=== PATIENT | female | born 1950 | race Caucasian/White ===

== ENCOUNTER 2017-04-16 14:32 | Outpatient (CLI) | payer MEDICARE ==
--- NOTE | 2017-04-17 13:23 | RAD ---
CHEST TWO VIEWS: 04/16/17 HISTORY: Chest pain. COMPARISON: 03/15/17 FINDINGS: The cardiac silhouette and pulmonary vasculature are unremarkable. Lungs remain hyperinflated. Infil trate throughout the right upper lobe has become more diffuse than on the prior study. Focal consoli dation has developed at the right posterior lung base. A nasogastric tube and left subclavian centra l venous catheter have been removed. IMPRESSION: Interval evolution of the right upper lobe infiltrate. Newly developing right lower lobe consolidati on. POS: [facility]
== END 2017-04-16 14:33 | disposition home or self-care (01) ==
LOC: NAV RAD 14:32
PROVIDERS: ATTEND Family Medicine
DX: J18.1 Lobar pneumonia, unspecified organism (principal); A04.7 Enterocolitis due to Clostridium difficile; R91.8 Other nonspecific abnormal finding of lung field
CPT/HCPCS: 71020

== ENCOUNTER 2017-04-19 09:51 | Outpatient (CLI) | payer MEDICARE | END 2017-04-19 09:52 | disposition home or self-care (01) | LOC: NAV LABSP 09:51 | PROVIDERS: ATTEND Family Medicine | DX: A04.7 Enterocolitis due to Clostridium difficile (principal) | CPT/HCPCS: 87324; 87449 ==

== ENCOUNTER 2017-04-26 15:23 | Outpatient (CLI) | payer MEDICARE ==
--- NOTE | 2017-04-26 16:00 | RAD ---
2 VIEWS CHEST: Date: 04/26/17 PROVIDED CLINICAL HISTORY: Follow-up pneumonia. FINDINGS: Comparison is made with the study dated 04/16/17. The cardiac and mediastinal silhouette is unchanged in appearance. There has been interval improveme nt in the air space disease previously seen involving the right upper lobe. There is more dense cons olidation, though not increased in size, at the right lower lobe. Left lung remains clear. Scoliosis of the thoracic spine is again seen. No evidence for pleural fluid or pneumothorax. IMPRESSION: 1. Mid improvement in right upper lobe pneumonia. 2. Evolution of right lower lobe air space disease compatible with pneumonia. Radiographic follow-u p to document resolution is recommended. POS: [facility]
== END 2017-04-26 15:24 | disposition home or self-care (01) ==
LOC: NAV RAD 15:23
PROVIDERS: ATTEND Family Medicine
DX: J18.1 Lobar pneumonia, unspecified organism (principal)
CPT/HCPCS: 71020

== ENCOUNTER 2017-06-07 14:23 | Outpatient (CLI) | payer MEDICARE ==
--- NOTE | 2017-06-07 16:46 | RAD ---
EXAM: CHEST TWO VIEWS 06/07/17 COMPARISON: 04/26/17 HISTORY: Weakness. FINDINGS: There is persistent decreased volume of the right hemithorax. However, there is interval increased o pacification of the right and left hemithorax suggesting an infiltrate superimposed upon chronic anthony nge. Mild right sided pleural effusion. Compensatory hyperinflation of the left lung is noted. Stabl e cardiac silhouette. Stable bilateral apical pleural thickening. No pneumothorax. Stable curvature of the spine. IMPRESSION: Infiltrates superimposed upon chronic change. Continued surveillance is recommended to ensure resolu tion. POS: [facility]
== END 2017-06-07 14:24 | disposition home or self-care (01) ==
LOC: NAV RAD 14:23
PROVIDERS: ATTEND Family Medicine
DX: J18.1 Lobar pneumonia, unspecified organism (principal)
CPT/HCPCS: 71020

== ENCOUNTER 2017-06-10 12:59 | Emergency (ER) | payer MEDICARE ==
[2017-06-10 14:01] LABS: #Basophils 0.1 thou/uL (0.0-0.2); #Eosinphils 0.8 thou/uL (0.0-0.7); #Lymphocytes 1.8 thou/uL (1.20-3.40); #Monocytes 1.1 thou/uL (0.11-0.59); #Neutrophils 12.9 thou/uL (1.40-6.50); %Basophils 0.7 % (0.0-1.0); %Eosinophils 4.5 % (0.0-10.0); %Lymphocytes 10.7 % (21.0-51.0); %Monocytes 6.7 % (0.0-10.0); %Neutrophils 77.5 % (42.0-75.0); Hemoglobin 7.8 g/dL (12.0-16.0); Mean Corpuscular HGB CONC 30.3 g/dL (32.0-36.0); Mean Platelet Volume 5.5 fL (7.4-10.4); Platelet Count 682 thou/uL (130-400); RBC Distribution Width 14.5 % (11.5-14.5); White Blood Cell (WBC) Count 16.6 thou/uL (4.8-10.8)
[2017-06-10 14:02] LABS: Anisocytosis SLIGHT = 6-15 cells (100X) (0-5/hpf); Hypochromia MODERATE=16-30 cells (100X) (0-5/hpf); MDiff Complete? YES; Microcytosis SLIGHT = 6-15 cells (100X) (0-5/hpf); PLT Morphology Comment Appears Increased
[2017-06-10 14:10] LABS: ALT (SGPT) 21 U/L (8-55); AST (SGOT) 12 U/L (5-34); Albumin 3.5 g/dL (3.4-4.8); Alkaline Phosphatase 113 U/L (40-150); Anion Gap 17 mmol/L (10-20); BUN (Urea Nitrogen) 19 mg/dL (9.8-20.1); Bilirubin, Total 0.3 mg/dL (0.2-1.2); Calc. Creatinine Clearance 0 mL/min (70-130); Calcium 9.1 mg/dL (7.8-10.44); Carbon Dioxide 23 mmol/L (23-31); Chloride 100 mmol/L (98-107); Estimated GFR-MDRD 49; Globulin 3.1 g/dL (2.4-3.5); Glucose 117 mg/dL (80-115); Potassium 3.8 mmol/L (3.5-5.1); Protein, Total 6.6 g/dL (6.0-8.3); Sodium 136 mmol/L (136-145)
[2017-06-10 14:11] LABS: Troponin I 0.021 ng/mL (< 0.028)
--- NOTE | 2017-06-10 14:23 | RAD ---
CHEST PA AND LATERAL: HISTORY: A 67-year-old female with dyspnea and a history of an ongoing lung infection for the past three jenn hs with worsening shortness of breath and cough. COMPARISON: 06/07/2017 and 04/26/2017 FINDINGS: There are fairly extensive interstitial, reticulonodular, and fine alveolar nodular parenchymal gaffney ges throughout most of the right lung, although slightly less dense than on the 06/07/2017 study but still worse when compared to the 04/26/2017 study. In the left mid lung zone and lower lung zone, there are increased interstitial and reticulonodular parenchymal changes, which appear slightly more marked. Heart size is within normal limits and stable. There is biapical pleural thickening. IMPRESSION: Extensive bilateral interstitial, reticulonodular, and fine alveolar nodular parenchymal changes, po ssibly slightly improved in the right lung and probably slightly worse in the left mid lung zone whe n compared to the 06/07/2017 study. Both lungs are considerably worse when compared to an older 12/2016 study. Continue short-term followup. POS: [facility]
== END 2017-06-10 15:52 | disposition short-term general hospital (02) ==
LOC: NAV ERS 12:59
DX: J18.9 Pneumonia, unspecified organism (principal); K92.2 Gastrointestinal hemorrhage, unspecified; D64.9 Anemia, unspecified; I73.00 Raynaud's syndrome without gangrene; I48.91 Unspecified atrial fibrillation; E78.5 Hyperlipidemia, unspecified; I10 Essential (primary) hypertension; K58.9 Irritable bowel syndrome, unspecified; M81.0 Age-related osteoporosis without current pathological fracture; F41.9 Anxiety disorder, unspecified; F32.9 Major depressive disorder, single episode, unspecified
CPT/HCPCS: 71020; 80053; 82274; 82553; 83605; 83880; 84484; 85025; 87040; 93005; 94760; 96365; J1956

== ENCOUNTER 2017-08-05 13:17 | Emergency (ER) | payer MEDICARE, OTHER ==
[2017-08-05 14:22] LABS: ALT (SGPT) 17 U/L (8-55); AST (SGOT) 10 U/L (5-34); Albumin 2.9 g/dL (3.4-4.8); Alkaline Phosphatase 105 U/L (40-150); Anion Gap 15 mmol/L (10-20); BUN (Urea Nitrogen) 11 mg/dL (9.8-20.1); Bilirubin, Total 0.5 mg/dL (0.2-1.2); CK (CPK) 23 U/L (29-168); Calc. Creatinine Clearance 0 mL/min (70-130); Carbon Dioxide 22 mmol/L (23-31); Chloride 100 mmol/L (98-107); Estimated GFR-MDRD Greater than 90; Globulin 2.7 g/dL (2.4-3.5); Glucose 116 mg/dL (80-115); Lipase 4 U/L (8-78); Potassium 3.2 mmol/L (3.5-5.1); Protein, Total 5.6 g/dL (6.0-8.3); Sodium 134 mmol/L (136-145)
[2017-08-05 14:33] LABS: Bilirubin Negative (Negative); Blood, Urine Trace (Negative); Clarity Clear (Clear); Glucose, Urine (Dipstick) 100 mg/dL (Negative); Leukocyte Negative (Negative); Nitrite Negative (Negative); Protein, Urine (Dipstick) 30 mg/dL (Neg-Trace); Urobilinogen 0.2 mg/dL (0.2-1.0)
[2017-08-05 14:43] LABS: Anisocytosis MARKED = >30 cells (100X) (0-5/hpf); Band 1 % (5-11); Hemoglobin 10.4 g/dL (12.0-16.0); Lymphocytes 6 % (21-51); MDiff Complete? YES; Mean Corpuscular HGB CONC 32.8 g/dL (32.0-36.0); Mean Corpuscular Hemoglobin 27.9 pg (27.0-31.0); Mean Platelet Volume 5.5 fL (7.4-10.4); Monocytes 4 % (0-10); Neutrophil 89 % (42-75); Platelet Count 257 thou/uL (130-400); Polychromasia SLIGHT = 2-3 cells (100X) (0-2/hpf); RBC Distribution Width 20.3 % (11.5-14.5); Red Blood Cell (RBC) Count 3.74 mill/uL (4.20-5.40); Spherocytes SLIGHT = 1-5 cells (100X) (None Seen); Target Cells SLIGHT = 2-5 cells (100X) (0-1/hpf); Tear Drops SLIGHT = 2-5 cells (100X) (0-1/hpf); White Blood Cell (WBC) Count 21.8 thou/uL (4.8-10.8)
[2017-08-05 14:46] LABS: RBC/HPF 0-3 HPF (0-3); WBC/HPF 0-3 HPF (0-3)
--- NOTE | 2017-08-05 15:07 | RAD ---
PORTABLE CHEST 1 VIEW: DATE: 08/05/17. TIME: 2:38 p.m. HISTORY: Dehydration. FINDINGS: Comparison is made with the exam of 07/06/17. The previously noted gastrostomy tube is not seen. The heart size is borderline. There is pulmonar y vascular congestion. No lobar consolidation, pneumothoraces, or large effusions are seen. POS: [facility]
[2017-08-05 17:30] LABS: CKMB 2.9 ng/mL (0-6.6); Troponin I 0.019 ng/mL (< 0.028)
== END 2017-08-05 19:18 | disposition short-term general hospital (02) ==
LOC: NAV ERS 13:17
DX: E86.0 Dehydration (principal); I48.91 Unspecified atrial fibrillation; E78.5 Hyperlipidemia, unspecified; I10 Essential (primary) hypertension; M81.0 Age-related osteoporosis without current pathological fracture; F41.9 Anxiety disorder, unspecified; Z79.52 Long term (current) use of systemic steroids; Z79.01 Long term (current) use of anticoagulants; Z79.891 Long term (current) use of opiate analgesic; Z79.899 Other long term (current) drug therapy
CPT/HCPCS: 36415; 71010; 80053; 81003; 81015; 82550; 82553; 83690; 83880; 84484; 85025; 96360; 96361; A4353

== ENCOUNTER 2017-08-20 15:41 | Inpatient (IN) | payer MEDICARE ==
[2017-08-20 17:26] VITALS: BMI 19.1
[2017-08-20] MEDS: Acetaminophen/Codeine 30-300mg Tablet PO PRN (20:04)
[2017-08-20] MEDS: Famotidine 20 MG TAB PO SCH (20:05)
[2017-08-20] MEDS: Doxycycline 100 MG CAP PO SCH (20:05)
[2017-08-20] MEDS: ALPRAZolam 0.5 MG TAB PO SCH (20:05)
[2017-08-21] MEDS: Acetaminophen/Codeine 30-300mg Tablet PO PRN ×3 (02:52→16:12)
[2017-08-21 05:27] LABS: #Basophils 0.2 thou/uL (0.0-0.2); #Eosinphils 0.2 thou/uL (0.0-0.7); #Monocytes 1.9 thou/uL (0.11-0.59); #Neutrophils 8.3 thou/uL (1.40-6.50); %Basophils 1.5 % (0.0-1.0); %Eosinophils 1.9 % (0.0-10.0); %Monocytes 14.8 % (0.0-10.0); %Neutrophils 65.7 % (42.0-75.0); Hemoglobin 10.4 g/dL (12.0-16.0); Mean Corpuscular HGB CONC 31.3 g/dL (32.0-36.0); Mean Corpuscular Hemoglobin 29.3 pg (27.0-31.0); Mean Corpuscular Volume 93.6 fl (81.0-99.0); Mean Platelet Volume 5.3 fL (7.4-10.4); Platelet Count 557 thou/uL (130-400); RBC Distribution Width 21.3 % (11.5-14.5); Red Blood Cell (RBC) Count 3.56 mill/uL (4.20-5.40); White Blood Cell (WBC) Count 12.6 thou/uL (4.8-10.8)
[2017-08-21 05:28] LABS: Anisocytosis MODERATE=16-30 cells (100X) (0-5/hpf); Elliptocytes SLIGHT = 2-5 cells (100X) (0-1/hpf); MDiff Complete? YES; Ovalocytes SLIGHT = 2-5 cells (100X) (0-1/hpf); PLT Morphology Comment Appears Increased
[2017-08-21 05:37] LABS: Anion Gap 14 mmol/L (10-20); BUN (Urea Nitrogen) 13 mg/dL (9.8-20.1); Calc. Creatinine Clearance 60 mL/min (70-130); Carbon Dioxide 22 mmol/L (23-31); Chloride 102 mmol/L (98-107); Estimated GFR-MDRD Greater than 90; Glucose 108 mg/dL (80-115); Potassium 4.4 mmol/L (3.5-5.1); Sodium 134 mmol/L (136-145)
[2017-08-21] MEDS: Carvedilol 6.25 MG TAB PO SCH ×2 (09:53→17:58)
[2017-08-21] MEDS: Doxycycline 100 MG CAP PO SCH ×2 (09:53→21:56)
[2017-08-21] MEDS: Ferrous Sulfate 325 MG TAB PO SCH (09:53)
[2017-08-21] MEDS: Folic Acid 1 MG TAB PO SCH (09:54)
[2017-08-21] MEDS: Amlodipine 5 MG TAB PO SCH (09:54)
[2017-08-21] MEDS: Cyanocobalamin (Vitamin B-12) 1,000 MCG TAB PO SCH (09:54)
[2017-08-21] MEDS: Famotidine 20 MG TAB PO SCH ×2 (09:54→21:56)
[2017-08-21] MEDS: Digoxin 0.125 MG TAB PO SCH (09:54)
[2017-08-21] MEDS: ALPRAZolam 0.5 MG TAB PO SCH ×4 (09:54→21:56)
--- NOTE | 2017-08-21 13:41 | HP ---
DATE OF ADMISSION: 08/20/2017 DATE OF EXAMINATION AND DICTATION: 08/21/2017 CHIEF COMPLAINT: Deconditioning for therapy. BRIEF HISTORY: This is a 67-year-old female, who has a history of hypercapnic respiratory failure and atrial fibrillation, requiring PEG and trach placement and long stay in LTAC, was finally taken off her tracheostomy, but continued to be on her PEG tube and discharged home. She apparently has been eating at home. She apparently felt weak and dizzy, so came to [facility]'s ER. Zahra og was evaluated here and then transferred to [facility] in [place] for hypoxemia. She was admitted to the hospital for acute congestive heart failure and treated appropriately with IV diuretics and [facility]. She was seen by Pulmonary, Dr. La, and was felt to have signific ant deconditioning and she needs some therapy, but eventually will need to end up in a nursing facili , as she cannot take care of herself. She has been transferred here for therapy. Currently, she s tates that she is in chronic pain. She states that the pain medicines are helping. Her PEG tube was removed prior to discharge and she states that there is some soreness, but no other complaints. She is on doxycycline empirically according to the hospitalist for leukocytosis and possible questionabl e aspiration. She denies any coughing spells with eating or drinking. PAST MEDICAL HISTORY: 1. History of traumatic brain injury. 2. Irritable bowel syndrome. 3. Fibromyalgia. 4. Questionable history of rheumatoid arthritis. 5. Atrial fibrillation. 6. Dyslipidemia. 7. Chronic respiratory failure. 8. Chronic diastolic congestive heart failure. 9. Chronic kidney disease, stage 2. 10. Deconditioning. PAST SURGICAL HISTORY: 1. Bilateral tubal ligation. 2. Ankle surgery. 3. History of PEG tube placement. 4. Questionable history of tracheostomy. 5. History of radial keratotomy. FAMILY HISTORY: Noncontributory to current admission. PSYCHOSOCIAL HISTORY: No tobacco, alcohol, or IV drug abuse. CURRENT MEDICATIONS: She has been admitted here with the following medications: 1. Tylenol #3, 1-2 tablets q.6 hours p.r.n. pain. 2. Norvasc 2.5 mg daily. 3. Carvedilol 6.25 mg b.i.d. 4. Digoxin 0.125 mg daily. 5. Doxycycline 100 mg b.i.d. for 5 more days. 6. Pepcid 20 mg b.i.d. 7. Iron sulfate 325 daily. 8. Robaxin 500 mg p.o. q.i.d. ALLERGIES: PENICILLIN. REVIEW OF SYSTEMS: Cardiovascular System: Denies any chest pain, shortness of breath, palpitations, paroxysmal nocturnal dyspnea, orthopnea, pedal edema. Respiratory System: Denies any chronic cough , expectoration, or pleuritic-type chest pain. Gastrointestinal System: Denies any nausea, vomiting , diarrhea, constipation, hematemesis, melena, hematochezia. Genitourinary System: Denies any frequ ency, urgency, dysuria, or hematuria. Central Nervous System: No focal numbness, weakness, fainting spells. PHYSICAL EXAMINATION: GENERAL: A 67-year-old female resting comfortably in no acute distress. VITAL SIGNS: She is afebrile, heart rate is 82, respirations 20, oxygen saturation 97%, blood pressu re is 150/68. HEENT: Normocephalic, atraumatic. Pupils are equally reactive to light and accommodation. NECK: No JVD, thyromegaly, cervical adenopathy, throat exudates. No carotid bruits. CARDIOVASCULAR SYSTEM: S1 and S2 plus. RESPIRATORY SYSTEM: Normal vesicular breath sounds. ABDOMEN: Soft, nontender. PEG tube removal site is healthy. EXTREMITIES: Without cyanosis or clubbing. CENTRAL NERVOUS SYSTEM: Generalized weakness. LABORATORY VALUES: Done this morning show white count of 12.6, H and H is 10.4 and 33.4 with a plate let count of 557. Sodium 134, potassium 4.4, BUN and creatinine are 13 and 0.65. Her white count on 08/18/2017 was 12.7 and 08/14/2017 was 15, so it is improving. IMPRESSION: 1. Improving leukocytosis. 2. Possible bronchitis. 3. Deconditioning. 4. History of traumatic brain injury. 5. Chronic diastolic congestive heart failure. 6. Chronic kidney disease. 7. Atrial fibrillation, rate controlled. 8. History of chronic respiratory failure. 9. Possible osteoporosis. 10. Fibromyalgia. 11. History of rheumatoid arthritis. PLAN: 1. Continue current medications. 2. Nutritional support. 3. Deep venous thrombosis prophylaxis. 4. Decubitus precautions. 5. Stress ulcer prophylaxis. 6. Consult physical therapy and occupational therapy. 7. Monitor heart rate. 8. PEG tube site care, but it was removed. 9. Discussed with patient in detail and all questions answered. No family at the bedside.
[2017-08-21] MEDS: Methocarbamol 500 MG TAB PO PRN (14:44)
[2017-08-21] MEDS ORDERED: Artificial Tear Sol 15 ML BOT EA EYE PRN (17:28)
[2017-08-22] MEDS: Acetaminophen/Codeine 30-300mg Tablet PO PRN ×4 (02:30→21:09)
[2017-08-22] MEDS: Folic Acid 1 MG TAB PO SCH (08:57)
[2017-08-22] MEDS: Digoxin 0.125 MG TAB PO SCH (08:57)
[2017-08-22] MEDS: Famotidine 20 MG TAB PO SCH ×2 (08:57→21:09)
[2017-08-22] MEDS: Doxycycline 100 MG CAP PO SCH ×2 (08:57→21:09)
[2017-08-22] MEDS: Amlodipine 5 MG TAB PO SCH (08:57)
[2017-08-22] MEDS: Cyanocobalamin (Vitamin B-12) 1,000 MCG TAB PO SCH (08:58)
[2017-08-22] MEDS: ALPRAZolam 0.5 MG TAB PO SCH ×4 (08:58→21:11)
[2017-08-22] MEDS: Carvedilol 6.25 MG TAB PO SCH ×2 (08:58→17:47)
[2017-08-22] MEDS: Ferrous Sulfate 325 MG TAB PO SCH (08:59)
[2017-08-22] MEDS: Methocarbamol 500 MG TAB PO PRN ×2 (08:59→15:26)
--- NOTE | 2017-08-22 13:48 | PRG ---
DATE OF SERVICE: 08/22/2017 SUBJECTIVE: Ms. Tamez is complaining of pain. She states that she fell asleep in her wheelchair a nd she thinks it is not helping. She is apparently not doing much with therapy. She does not want t o be woken up at night to reposition her. I explained to her that the main reason she is here for th erapy and repositioning is very important to prevent skin breakdown. She denies any chest pain or sh ortness of breath. She denies any GI or symptoms. OBJECTIVE: VITAL SIGNS: She is afebrile, heart rate is 85, respirations 18, oxygen saturation 95%, blood pressu re is 132/70. CARDIOVASCULAR: S1, S2 plus. RESPIRATORY: Normal vesicular breath sounds. ABDOMEN: Soft, nontender, bowel sounds heard in all quadrants. The tube site removal, where it was removed, is healthy with dressing. CENTRAL NERVOUS SYSTEM: Generalized weakness. IMPRESSION: 1. History of traumatic brain injury. 2. Fibromyalgia. 3. Dyslipidemia. 4. Chronic diastolic congestive heart failure, well compensated. 5. Deconditioning. PLAN: 1. Continue current medications. 2. Encourage the patient to participate with therapy. 3. Nutritional support. 4. PEG tube site care where it was removed. 5. Routine laboratory values. 6. Deep venous thrombosis and stress ulcer prophylaxis. She is on PlexiPulses. 7. Decubitus precautions. 8. I discussed with the patient in detail.
[2017-08-23] MEDS: Acetaminophen/Codeine 30-300mg Tablet PO PRN ×3 (03:59→18:19)
[2017-08-23] MEDS: Methocarbamol 500 MG TAB PO PRN (04:00)
[2017-08-23] MEDS: Doxycycline 100 MG CAP PO SCH ×2 (08:34→21:32)
[2017-08-23] MEDS: Cyanocobalamin (Vitamin B-12) 1,000 MCG TAB PO SCH (08:34)
[2017-08-23] MEDS: Amlodipine 5 MG TAB PO SCH (08:34)
[2017-08-23] MEDS: Folic Acid 1 MG TAB PO SCH (08:35)
[2017-08-23] MEDS: ALPRAZolam 0.5 MG TAB PO SCH ×4 (08:35→21:32)
[2017-08-23] MEDS: Carvedilol 6.25 MG TAB PO SCH ×2 (08:35→17:04)
[2017-08-23] MEDS: Ferrous Sulfate 325 MG TAB PO SCH (08:36)
[2017-08-23] MEDS: Famotidine 20 MG TAB PO SCH ×2 (08:36→21:32)
[2017-08-23] MEDS: Digoxin 0.125 MG TAB PO SCH (08:36)
--- NOTE | 2017-08-23 09:38 | PRG ---
DATE OF SERVICE: 08/23/2017 SUBJECTIVE: Ms. Tamez is up in her bed eating her breakfast. She says she has a bad tooth and it is sensitive. She would like some Orajel. She denies any other concerns. Discussed with nursing an d she apparently is not doing a whole lot with therapy. Again reinforced the need for her to partici alicea with therapy so that she can get stronger and be discharged. OBJECTIVE: VITAL SIGNS: She is afebrile, heart rate 87, respirations 18, oxygen saturation 93%, blood pressure 147/72. CARDIOVASCULAR: S1, S2 plus. RESPIRATORY: Normal vesicular breath sounds. ABDOMEN: Soft, nontender, bowel sounds heard in all quadrants. PEG tube removal site is healthy and with dressing. EXTREMITIES: Without cyanosis or clubbing. IMPRESSION: 1. Chronic diastolic congestive heart failure. 2. Significant deconditioning. 3. Fibromyalgia. 4. Questionable rheumatoid arthritis. 5. History of traumatic brain injury. 6. Chronic diastolic congestive heart failure, well compensated. 7. Poor dentition. PLAN: 1. Orajel t.i.d. p.r.n. 2. Encourage the patient to participate with physical therapy. 3. Continue current medications. 4. PEG tube removal site care. 5. DVT and stress ulcer prophylaxis. 6. Decubitus precautions. 7. Nutritional support. 8. No family at bedside. 9. Discussed with patient in detail. All questions answered.
[2017-08-23] MEDS ORDERED: Benzocaine (Dental) 20% Gel 30GM Jar TOP PRN (17:24)
[2017-08-23] MEDS ORDERED: Hydrocortisone Acetate 25 MG Suppository PR SCH (21:30)
[2017-08-24] MEDS: Acetaminophen/Codeine 30-300mg Tablet PO PRN ×3 (06:42→21:09)
[2017-08-24] MEDS: Ferrous Sulfate 325 MG TAB PO SCH (09:29)
[2017-08-24] MEDS: Methocarbamol 500 MG TAB PO PRN (09:29)
[2017-08-24] MEDS: ALPRAZolam 0.5 MG TAB PO SCH ×4 (09:29→21:09)
[2017-08-24] MEDS: Famotidine 20 MG TAB PO SCH ×2 (09:30→21:09)
[2017-08-24] MEDS: Doxycycline 100 MG CAP PO SCH ×2 (09:30→21:08)
[2017-08-24] MEDS: Amlodipine 5 MG TAB PO SCH (09:30)
[2017-08-24] MEDS: Digoxin 0.125 MG TAB PO SCH (09:30)
[2017-08-24] MEDS: Folic Acid 1 MG TAB PO SCH (09:30)
[2017-08-24] MEDS: Hydrocortisone Acetate 25 MG Suppository PR SCH ×4 (09:31→21:08)
[2017-08-24] MEDS: Hydrocortisone 1% Cream 30 GM TUBE TOP SCH ×3 (09:31→21:12)
[2017-08-24] MEDS: Cyanocobalamin (Vitamin B-12) 1,000 MCG TAB PO SCH (09:31)
[2017-08-24] MEDS: Carvedilol 6.25 MG TAB PO SCH ×2 (09:32→17:51)
--- NOTE | 2017-08-24 10:34 | PRG ---
DATE OF SERVICE: 08/24/2017 DATE OF ADMISSION: 08/20/2017 HISTORY OF PRESENT ILLNESS: Ms. Chaparro is a very pleasant 67-year-old white female admitted to the hospital for deconditioning and COPD exacerbation along with traumatic brain injury, fibromyalgia, an d dental pain. The patient has actually been doing pretty well today. She states her tooth feels a bit better. We are encouraging her to continue with physical therapy. We are also encouraging her to down the bed a s much as possible. PHYSICAL EXAMINATION: VITAL SIGNS: Today reveal blood pressure 129/67, pulse 83-87, respirations 20, O2 sat 95%, temperatu re 98.1. GENERAL: This is a well-developed, well-nourished, slightly obese white female in no apparent distre ss at this time. HEENT: Reveals normocephalic, nontraumatic cranium. Pupils are equally round. Nose and throat are slightly dry, but clear. NECK: Supple, without masses, nodes or bruits. CHEST: Clear to auscultation. No rales, rhonchi or wheezes are heard. No cough is noted. HEART: Reveals a regular rate and rhythm without murmurs, gallops or rubs. ABDOMEN: Slightly obese, soft, nontender, without organomegaly. Normal bowel sounds are noted. No rebound or guarding is noted. GENITOURINARY: PEG tube site is still clean. Exam is deferred. EXTREMITIES: Reveal no clubbing, cyanosis or edema. ASSESSMENT: 1. Chronic diastolic congestive heart failure. 2. Generalized weakness with significant deconditioning. 3. Fibromyalgia. 4. History of rheumatoid arthritis. 5. History of traumatic brain injury. 6. Generalized weakness. 7. Poor dentition. PLAN: 1. Continue to follow for signs and symptoms of congestive heart failure. 2. Continue Orajel since that is helping quite a bit. 3. Encouraged patient to get out of bed as much as possible and stay in wheelchair till this weekend . 4. Continue to keep PEG site area clean. 5. Stress ulcer prophylaxis. 6. DVT prophylaxis. 7. Decubitus precautions. 8. Continue with nutritional support. 9. Answer all the patient's questions in detail.
[2017-08-24] MEDS: diphenhydrAMINE 25 MG CAP PO PRN (21:08)
--- NOTE | 2017-08-25 07:45 | PRG ---
DATE OF SERVICE: 08/25/2017 DATE OF ADMISSION: 08/20/2017 HISTORY OF PRESENT ILLNESS: Ms. Tamez is a very pleasant 67-year-old white female. She has a hist ory of COPD, acute exacerbation with traumatic brain injury, fibromyalgia, general pain and generaliz ed deconditioning. The patient states she does not sleep well since she has had her TBI, but is still doing okay. We ar e encouraging her to continue working with physical therapy and occupational therapy. OBJECTIVE: VITAL SIGNS: Today reveal blood pressure last night was 146/60, it is still pending this morning. P ulse 83, respirations 18, O2 sat 95%-97%, T-max is 96.1. GENERAL: This is a well-developed, well-nourished, white female in no apparent distress at this time . HEENT: Reveals normocephalic, nontraumatic cranium. The pupils are equally round and reactive. Nos e and throat are clear, but dry. NECK: Supple, without masses, nodes or bruits. LUNGS: Chest is clear to auscultation. No rales, no rhonchi, no wheezes are heard. HEART: Reveals a regular rate and rhythm without murmurs, gallops or rubs. ABDOMEN: Soft and nontender without organomegaly. Normal bowel sounds are noted. No rebound or gua rding is evident. PEG tube site is still clean. GENITOURINARY: Deferred. EXTREMITIES: Reveal no clubbing, cyanosis or edema. IMPRESSION: 1. Chronic diastolic congestive heart failure. 2. Fibromyalgia. 3. History of rheumatoid arthritis. 4. History of traumatic brain injury. 5. Generalized weakness with significant deconditioning. 6. Poor dentition. PLAN: 1. Continue to follow the patient closely for signs and symptoms of congestive heart failure. 2. Continue Orajel. 3. Encourage the patient to be out of bed as much as possible. 4. Continue to keep the PEG site clean. 5. Stress ulcer prophylaxis. 6. DVT prophylaxis. 7. Decubitus precautions. 8. Continue physical therapy and occupational therapy. 9. Nutritional support.
[2017-08-25] MEDS: Doxycycline 100 MG CAP PO SCH ×2 (09:42→22:01)
[2017-08-25] MEDS: Cyanocobalamin (Vitamin B-12) 1,000 MCG TAB PO SCH (09:43)
[2017-08-25] MEDS: Amlodipine 5 MG TAB PO SCH (09:43)
[2017-08-25] MEDS: Folic Acid 1 MG TAB PO SCH (09:43)
[2017-08-25] MEDS: Digoxin 0.125 MG TAB PO SCH (09:43)
[2017-08-25] MEDS: Ferrous Sulfate 325 MG TAB PO SCH (09:43)
[2017-08-25] MEDS: ALPRAZolam 0.5 MG TAB PO SCH ×4 (09:43→22:01)
[2017-08-25] MEDS: Famotidine 20 MG TAB PO SCH ×2 (09:43→22:01)
[2017-08-25] MEDS: Hydrocortisone Acetate 25 MG Suppository PR SCH ×4 (09:44→22:01)
[2017-08-25] MEDS: Hydrocortisone 1% Cream 30 GM TUBE TOP SCH ×3 (09:44→22:01)
[2017-08-25] MEDS: Carvedilol 6.25 MG TAB PO SCH ×2 (09:44→17:40)
[2017-08-25] MEDS: Acetaminophen/Codeine 30-300mg Tablet PO PRN (15:07)
[2017-08-25] MEDS: Methocarbamol 500 MG TAB PO PRN (15:08)
[2017-08-25] MEDS: diphenhydrAMINE 25 MG CAP PO PRN (22:01)
[2017-08-26] MEDS: Hydrocortisone Acetate 25 MG Suppository PR SCH ×4 (09:07→21:29)
[2017-08-26] MEDS: ALPRAZolam 0.5 MG TAB PO SCH ×4 (09:07→21:30)
[2017-08-26] MEDS: Doxycycline 100 MG CAP PO SCH ×2 (09:07→21:30)
[2017-08-26] MEDS: Digoxin 0.125 MG TAB PO SCH (09:08)
[2017-08-26] MEDS: Carvedilol 6.25 MG TAB PO SCH ×2 (09:08→16:32)
[2017-08-26] MEDS: Folic Acid 1 MG TAB PO SCH (09:08)
[2017-08-26] MEDS: Ferrous Sulfate 325 MG TAB PO SCH (09:08)
[2017-08-26] MEDS: Amlodipine 5 MG TAB PO SCH (09:09)
[2017-08-26] MEDS: Cyanocobalamin (Vitamin B-12) 1,000 MCG TAB PO SCH (09:09)
[2017-08-26] MEDS: Famotidine 20 MG TAB PO SCH ×2 (09:10→21:30)
[2017-08-26] MEDS: Hydrocortisone 1% Cream 30 GM TUBE TOP SCH ×3 (09:10→21:30)
[2017-08-26] MEDS: Acetaminophen/Codeine 30-300mg Tablet PO PRN ×2 (09:21→16:36)
[2017-08-26] MEDS: Methocarbamol 500 MG TAB PO PRN (12:21)
--- NOTE | 2017-08-26 13:30 | PRG ---
DATE OF SERVICE: 08/26/2017 SUBJECTIVE: Ms. Tamez is doing well. Denies any complaints, resting comfortably, tolerating her t herapy. She states that she was able to stand yesterday. OBJECTIVE: VITAL SIGNS: She is afebrile, heart rate is 77, respirations 18, blood pressure 174/81. CARDIOVASCULAR SYSTEM: S1, S2 plus. RESPIRATORY SYSTEM: Normal vesicular breath sounds. ABDOMEN: Soft, nontender, bowel sounds heard in all quadrants. EXTREMITIES: Without cyanosis or clubbing. IMPRESSION: 1. Improving deconditioning. 2. Fibromyalgia. 3. Chronic diastolic congestive heart failure. 4. History of traumatic brain injury. PLAN: 1. Continue current medications. 2. Nutritional support. 3. Monitor blood pressure and adjust medications. 4. DVT and stress ulcer prophylaxis. 5. Physical therapy. 6. Routine laboratory values. 7. No family at the bedside.
[2017-08-26] MEDS: Acetaminophen 500 MG TAB PO PRN (15:16)
[2017-08-26] MEDS: diphenhydrAMINE 25 MG CAP PO PRN (21:30)
[2017-08-27] MEDS: Hydrocortisone Acetate 25 MG Suppository PR SCH ×4 (08:46→21:19)
[2017-08-27] MEDS: Ferrous Sulfate 325 MG TAB PO SCH (08:46)
[2017-08-27] MEDS: Cyanocobalamin (Vitamin B-12) 1,000 MCG TAB PO SCH (08:46)
[2017-08-27] MEDS: Amlodipine 5 MG TAB PO SCH (08:46)
[2017-08-27] MEDS: Acetaminophen/Codeine 30-300mg Tablet PO PRN ×2 (08:47→13:32)
[2017-08-27] MEDS: Famotidine 20 MG TAB PO SCH ×2 (08:48→21:19)
[2017-08-27] MEDS: ALPRAZolam 0.5 MG TAB PO SCH ×4 (08:48→21:19)
[2017-08-27] MEDS: Carvedilol 6.25 MG TAB PO SCH ×2 (08:48→17:30)
[2017-08-27] MEDS: Folic Acid 1 MG TAB PO SCH (08:48)
[2017-08-27] MEDS: Hydrocortisone 1% Cream 30 GM TUBE TOP SCH ×3 (08:48→21:20)
[2017-08-27] MEDS: Digoxin 0.125 MG TAB PO SCH (08:48)
--- NOTE | 2017-08-27 13:33 | PRG ---
DATE OF SERVICE: 08/27/2017 SUBJECTIVE: Ms. Tamez is doing well. Denies any complaints. She states that she is tolerating th erapy. Denies any pain. Discussed with nursing and no concerns. OBJECTIVE: VITAL SIGNS: She is afebrile, heart rate 83, respirations 18, oxygen saturation 97%, and blood press ure 154/70. CARDIOVASCULAR SYSTEM: S1, S2 plus. RESPIRATORY SYSTEM: Normal vesicular breath sounds. ABDOMEN: Soft, nontender, bowel sounds heard in all quadrants. EXTREMITIES: Without cyanosis or clubbing. Peripheral pulses are palpable. CENTRAL NERVOUS SYSTEM: Grossly nonfocal. IMPRESSION: 1. Fibromyalgia. 2. Improving deconditioning. 3. Hypertension. 4. Resolved bronchitis. 5. Chronic diastolic congestive heart failure. 6. History of traumatic brain injury. PLAN: 1. Continue current medications. 2. Nutritional support. 3. DVT and stress ulcer prophylaxis. 4. Decubitus precautions. 5. Routine laboratory values. 6. No family at the bedside. 7. Discussed with patient in detail and all questions answered.
[2017-08-27] MEDS: diphenhydrAMINE 25 MG CAP PO PRN (21:19)
[2017-08-28 05:19] LABS: #Basophils 0.2 thou/uL (0.0-0.2); #Eosinphils 0.4 thou/uL (0.0-0.7); #Lymphocytes 2.6 thou/uL (1.20-3.40); #Monocytes 1.4 thou/uL (0.11-0.59); #Neutrophils 9.5 thou/uL (1.40-6.50); %Basophils 1.3 % (0.0-1.0); %Eosinophils 2.7 % (0.0-10.0); %Lymphocytes 18.5 % (21.0-51.0); %Neutrophils 67.6 % (42.0-75.0); Anisocytosis MODERATE=16-30 cells (100X) (0-5/hpf); Hemoglobin 10.9 g/dL (12.0-16.0); MDiff Complete? YES; Mean Corpuscular HGB CONC 34.2 g/dL (32.0-36.0); Mean Corpuscular Volume 90.7 fl (81.0-99.0); Mean Platelet Volume 5.4 fL (7.4-10.4); Microcytosis SLIGHT = 6-15 cells (100X) (0-5/hpf); Ovalocytes SLIGHT = 2-5 cells (100X) (0-1/hpf); PLT Morphology Comment Appears Adequate; Platelet Count 465 thou/uL (130-400); RBC Distribution Width 19.1 % (11.5-14.5); Red Blood Cell (RBC) Count 3.52 mill/uL (4.20-5.40); White Blood Cell (WBC) Count 14.1 thou/uL (4.8-10.8)
[2017-08-28 05:29] LABS: Anion Gap 16 mmol/L (10-20); BUN (Urea Nitrogen) 18 mg/dL (9.8-20.1); Calc. Creatinine Clearance 62 mL/min (70-130); Calcium 9.4 mg/dL (7.8-10.44); Carbon Dioxide 23 mmol/L (23-31); Chloride 102 mmol/L (98-107); Estimated GFR-MDRD Greater than 90; Glucose 106 mg/dL (80-115); Potassium 4.4 mmol/L (3.5-5.1); Sodium 137 mmol/L (136-145)
[2017-08-28] MEDS: Hydrocortisone 1% Cream 30 GM TUBE TOP SCH ×3 (09:25→21:48)
[2017-08-28] MEDS: Hydrocortisone Acetate 25 MG Suppository PR SCH ×5 (09:25→21:49)
[2017-08-28] MEDS: ALPRAZolam 0.5 MG TAB PO SCH ×4 (09:26→21:39)
[2017-08-28] MEDS: Carvedilol 6.25 MG TAB PO SCH ×2 (09:26→17:41)
[2017-08-28] MEDS: Folic Acid 1 MG TAB PO SCH (09:26)
[2017-08-28] MEDS: Amlodipine 5 MG TAB PO SCH (09:26)
[2017-08-28] MEDS: Acetaminophen/Codeine 30-300mg Tablet PO PRN ×2 (09:27→15:47)
[2017-08-28] MEDS: Ferrous Sulfate 325 MG TAB PO SCH (09:27)
[2017-08-28] MEDS: Cyanocobalamin (Vitamin B-12) 1,000 MCG TAB PO SCH (09:27)
[2017-08-28] MEDS: Digoxin 0.125 MG TAB PO SCH (09:27)
[2017-08-28] MEDS: Methocarbamol 500 MG TAB PO PRN ×2 (09:27→15:46)
[2017-08-28] MEDS: Famotidine 20 MG TAB PO SCH ×2 (09:27→21:40)
--- NOTE | 2017-08-28 12:13 | PRG ---
DATE OF SERVICE: 08/28/2017 SUBJECTIVE: Ms. Tamez is doing well. Denies any complaints, resting comfortably, tolerating her t herapy. Denies any concerns or questions. OBJECTIVE: VITAL SIGNS: She is afebrile, heart rate is 78, respirations 14, oxygen saturation 93%, blood pressu re is 141/71. CARDIOVASCULAR SYSTEM: S1, S2 plus. RESPIRATORY SYSTEM: Normal vesicular breath sounds. ABDOMEN: Soft, nontender, bowel sounds heard in all quadrants. EXTREMITIES: Without cyanosis or clubbing. CENTRAL NERVOUS SYSTEM: Generalized deconditioning. LABORATORY VALUES: White count is 14.1, H&H is 10.9 and 31.9, white count was 12.6 last time, sodium 137, potassium 4.4, BUN and creatinine is 18 and 0.63. IMPRESSION: 1. Leukocytosis. 2. Fibromyalgia. 3. Deconditioning. 4. Chronic diastolic congestive heart failure. 5. History of traumatic brain injury. 6. Possible bronchitis. PLAN: 1. Check urine culture and blood cultures. 2. Continue current medications. 3. Nutritional support. 4. Physical therapy. 5. DVT and stress ulcer prophylaxis. 6. Monitor blood pressures. 7. Routine laboratory values. 8. Hold off on any empiric antibiotics since there is really no focus of infection. Discussed with patient in detail.
[2017-08-29] MEDS: Hydrocortisone 1% Cream 30 GM TUBE TOP SCH ×3 (09:23→20:26)
[2017-08-29] MEDS: Amlodipine 5 MG TAB PO SCH (09:24)
[2017-08-29] MEDS: Folic Acid 1 MG TAB PO SCH (09:25)
[2017-08-29] MEDS: Ferrous Sulfate 325 MG TAB PO SCH (09:25)
[2017-08-29] MEDS: Digoxin 0.125 MG TAB PO SCH (09:26)
[2017-08-29] MEDS: Cyanocobalamin (Vitamin B-12) 1,000 MCG TAB PO SCH (09:27)
[2017-08-29] MEDS: Hydrocortisone Acetate 25 MG Suppository PR SCH ×4 (09:27→20:27)
[2017-08-29] MEDS: Famotidine 20 MG TAB PO SCH ×2 (09:27→20:26)
[2017-08-29] MEDS: ALPRAZolam 0.5 MG TAB PO SCH ×4 (09:27→20:25)
[2017-08-29] MEDS: Carvedilol 6.25 MG TAB PO SCH ×2 (09:27→17:18)
--- NOTE | 2017-08-29 12:53 | PRG ---
DATE OF SERVICE: 08/29/2017 SUBJECTIVE: Ms. Tamez is doing well except she continues to have a dry cough. Denies any fever or chills. Denies any chest pain or shortness of breath. OBJECTIVE: VITAL SIGNS: She is afebrile, heart rate 88, respirations 18, oxygen saturation 96%, blood pressure is 124/68. CARDIOVASCULAR: S1, S2 plus. RESPIRATORY: Normal vesicular breath sounds. ABDOMEN: Soft, nontender, bowel sounds heard in all quadrants. EXTREMITIES: Without cyanosis or clubbing. IMPRESSION: 1. Improving deconditioning. 2. Worsening leukocytosis. 3. Persistent cough. 4. Fibromyalgia. 5. History of traumatic brain injury. 6. Chronic diastolic congestive heart failure. PLAN: 1. Check chest x-ray. 2. Await urine cultures and blood cultures. 3. Recheck laboratory values. 4. Hold off on empiric antibiotics. 5. DVT and stress ulcer prophylaxis. 6. Decubitus precautions. 7. Routine laboratory values. 8. Physical therapy.
[2017-08-29] MEDS: Methocarbamol 500 MG TAB PO PRN (14:06)
[2017-08-29] MEDS: Acetaminophen/Codeine 30-300mg Tablet PO PRN ×2 (14:06→20:27)
--- NOTE | 2017-08-29 16:17 | RAD ---
PORTABLE CHEST 1 VIEW: Date: 08/29/17 Time: 1533 hours HISTORY: Cough. FINDINGS/IMPRESSION: The heart size is normal. The aorta is tortuous. The lungs are well expanded without lobar consolidat ion, pneumothoraces, or pleural effusions. There is mild prominence of the interstitial markings. POS: [facility]
[2017-08-30] MEDS: Acetaminophen/Codeine 30-300mg Tablet PO PRN ×2 (08:32→20:43)
[2017-08-30] MEDS: Folic Acid 1 MG TAB PO SCH (08:33)
[2017-08-30] MEDS: Cyanocobalamin (Vitamin B-12) 1,000 MCG TAB PO SCH (08:33)
[2017-08-30] MEDS: Amlodipine 5 MG TAB PO SCH (08:33)
[2017-08-30] MEDS: Ferrous Sulfate 325 MG TAB PO SCH (08:33)
[2017-08-30] MEDS: Carvedilol 6.25 MG TAB PO SCH ×2 (08:33→17:28)
[2017-08-30] MEDS: Famotidine 20 MG TAB PO SCH ×2 (08:35→20:42)
[2017-08-30] MEDS: Hydrocortisone Acetate 25 MG Suppository PR SCH ×4 (08:35→20:43)
[2017-08-30] MEDS: diphenhydrAMINE 25 MG CAP PO PRN (08:35)
[2017-08-30] MEDS: ALPRAZolam 0.5 MG TAB PO SCH ×4 (08:35→20:42)
[2017-08-30] MEDS: Digoxin 0.125 MG TAB PO SCH (08:35)
[2017-08-30] MEDS: Loratadine 10 MG TAB PO SCH (08:35)
[2017-08-30] MEDS: Hydrocortisone 1% Cream 30 GM TUBE TOP SCH ×3 (08:36→20:43)
--- NOTE | 2017-08-30 09:21 | PRG ---
DATE OF SERVICE: 08/30/2017 SUBJECTIVE: Ms. Tamez is doing well. Denies any complaints, resting comfortably, tolerating her t herapy, continues to have dry cough. Chest x-ray was done yesterday because of the persistent cough and it does not show any consolidation, pneumothorax, or effusion. I advised her that she probably n eeds to start using an incentive spirometry. She said she also needs to be back on her calcium and v itamin D. OBJECTIVE: VITAL SIGNS: She is afebrile, heart rate is 77, respirations 20, blood pressure 129/68, and oxygen s aturation is 95%. CARDIOVASCULAR SYSTEM: S1, S2 plus. RESPIRATORY SYSTEM: Normal vesicular breath sounds. ABDOMEN: Soft and nontender. Bowel sounds heard in all quadrants. EXTREMITIES: Without cyanosis or clubbing. Peripheral pulses are palpable. CENTRAL NERVOUS SYSTEM: Grossly nonfocal. IMPRESSION: 1. Chronic cough with negative chest x-ray, no evidence for any infection. 2. Leukocytosis of unknown etiology. Her cultures so far are negative for blood and urine. 3. Significant deconditioning with slow improvement. 4. Fibromyalgia. 5. History of traumatic brain injury. 6. Hypertension, well controlled. PLAN: 1. Continue current medications. 2. Resume calcium and vitamin D. 3. Recheck laboratory values in the morning. 4. Physical therapy. 5. Incentive spirometry. 6. DVT and stress ulcer prophylaxis. 7. Decubitus precautions. 8. Physical therapy. 9. No family at the bedside. 10. Discussed with patient in detail and all questions answered.
[2017-08-30] MEDS: Methocarbamol 500 MG TAB PO PRN (13:53)
[2017-08-30] MEDS: Calcium Carbonate + Vit D 1 TAB PO SCH (17:28)
[2017-08-31 05:25] LABS: #Basophils 0.1 thou/uL (0.0-0.2); #Eosinphils 0.5 thou/uL (0.0-0.7); #Lymphocytes 2.4 thou/uL (1.20-3.40); #Monocytes 1.4 thou/uL (0.11-0.59); #Neutrophils 9.6 thou/uL (1.40-6.50); %Eosinophils 3.9 % (0.0-10.0); %Lymphocytes 17.2 % (21.0-51.0); %Monocytes 9.8 % (0.0-10.0); %Neutrophils 68.1 % (42.0-75.0); Anisocytosis MODERATE=16-30 cells (100X) (0-5/hpf); Elliptocytes SLIGHT = 2-5 cells (100X) (0-1/hpf); MDiff Complete? YES; Mean Corpuscular HGB CONC 31.1 g/dL (32.0-36.0); Mean Corpuscular Hemoglobin 29.4 pg (27.0-31.0); Mean Corpuscular Volume 94.2 fl (81.0-99.0); Mean Platelet Volume 5.6 fL (7.4-10.4); Microcytosis SLIGHT = 6-15 cells (100X) (0-5/hpf); Ovalocytes SLIGHT = 2-5 cells (100X) (0-1/hpf); Platelet Count 407 thou/uL (130-400); Red Blood Cell (RBC) Count 3.76 mill/uL (4.20-5.40); White Blood Cell (WBC) Count 14.1 thou/uL (4.8-10.8)
[2017-08-31 05:29] LABS: Anion Gap 14 mmol/L (10-20); BUN (Urea Nitrogen) 17 mg/dL (9.8-20.1); Calc. Creatinine Clearance 63 mL/min (70-130); Calcium 10.2 mg/dL (7.8-10.44); Carbon Dioxide 26 mmol/L (23-31); Chloride 100 mmol/L (98-107); Estimated GFR-MDRD Greater than 90; Glucose 98 mg/dL (80-115); Potassium 4.1 mmol/L (3.5-5.1); Sodium 136 mmol/L (136-145)
[2017-08-31] MEDS: Amlodipine 5 MG TAB PO SCH (08:36)
[2017-08-31] MEDS: Famotidine 20 MG TAB PO SCH ×2 (08:37→20:17)
[2017-08-31] MEDS: Ferrous Sulfate 325 MG TAB PO SCH (08:37)
[2017-08-31] MEDS: Digoxin 0.125 MG TAB PO SCH (08:37)
[2017-08-31] MEDS: ALPRAZolam 0.5 MG TAB PO SCH ×4 (08:37→20:18)
[2017-08-31] MEDS: Calcium Carbonate + Vit D 1 TAB PO SCH ×2 (08:37→17:19)
[2017-08-31] MEDS: Cyanocobalamin (Vitamin B-12) 1,000 MCG TAB PO SCH (08:37)
[2017-08-31] MEDS: Hydrocortisone 1% Cream 30 GM TUBE TOP SCH ×3 (08:38→20:17)
[2017-08-31] MEDS: Carvedilol 6.25 MG TAB PO SCH ×2 (08:38→17:19)
[2017-08-31] MEDS: Loratadine 10 MG TAB PO SCH (08:38)
[2017-08-31] MEDS: Hydrocortisone Acetate 25 MG Suppository PR SCH ×4 (08:39→19:34)
[2017-08-31] MEDS: Folic Acid 1 MG TAB PO SCH (08:39)
--- NOTE | 2017-08-31 15:11 | PRG ---
DATE OF SERVICE: 08/31/2017 SUBJECTIVE: Ms. Tamez is doing the same except complaining of cough. Denies any fever or chills. Denies any chest pain or shortness of breath. OBJECTIVE: VITAL SIGNS: She is afebrile, heart rate 84, respirations 18, oxygen saturation 95%, and blood press ure was elevated this morning at 178/74. CARDIOVASCULAR SYSTEM: S1, S2 plus. RESPIRATORY SYSTEM: Normal vesicular breath sounds. ABDOMEN: Soft, nontender, bowel sounds heard in all quadrants. EXTREMITIES: Without cyanosis or clubbing. LABORATORY DATA: White count is 14.1, which is the same; hemoglobin and hematocrit is 11 and 35.4. Sodium 136, potassium 4.1, BUN and creatinine 17 and 0.62. IMPRESSION: 1. Cough, possible reactive airway disease. 2. History of traumatic brain injury. 3. Deconditioning with slow improvement. 4. Hypertension, fluctuating control. 5. Fibromyalgia. PLAN: 1. Trial of handheld nebulizer with albuterol q.6 p.r.n. 2. Continue nutritional support. 3. Low sodium diet. 4. Current medications. 5. Physical therapy. 6. DVT and stress ulcer prophylaxis. 7. Decubitus precautions. 8. Routine laboratory values.
[2017-08-31] MEDS: Albuterol Sulfate 2.5 mg/3 ml Neb NEB PRN (17:53)
--- NOTE | 2017-09-01 09:08 | PRG ---
DATE OF SERVICE: 09/01/2017 SUBJECTIVE: Ms. Tamez is doing well. She had just one breathing treatment last night. She states that she is still having some cough, I advised her to take it 4 times today and see how she does. OBJECTIVE: VITAL SIGNS: She is afebrile, heart rate 62, respirations 16, oxygen saturation 94%, blood pressure is 116/65. CARDIOVASCULAR SYSTEM: S1, S2 plus. RESPIRATORY SYSTEM: Normal vesicular breath sounds. ABDOMEN: Soft, nontender, bowel sounds heard in all quadrants. EXTREMITIES: Without cyanosis or clubbing. Peripheral pulses are palpable. CENTRAL NERVOUS SYSTEM: Grossly nonfocal. IMPRESSION: 1. Chronic cough. 2. Improving deconditioning. 3. History of traumatic brain injury. 4. Hypertension, well controlled. 5. Fibromyalgia. PLAN: 1. Continue current medications. 2. Breathing treatments q.6 h. 3. Physical therapy and occupational therapy. 4. DVT and stress ulcer prophylaxis. 5. Decubitus precautions. 6. Routine laboratory values.
[2017-09-01] MEDS: Albuterol Sulfate 2.5 mg/3 ml Neb NEB PRN ×2 (09:11→16:04)
[2017-09-01] MEDS: ALPRAZolam 0.5 MG TAB PO SCH ×4 (09:13→20:43)
[2017-09-01] MEDS: Famotidine 20 MG TAB PO SCH ×2 (09:13→20:43)
[2017-09-01] MEDS: Folic Acid 1 MG TAB PO SCH (09:13)
[2017-09-01] MEDS: Cyanocobalamin (Vitamin B-12) 1,000 MCG TAB PO SCH (09:13)
[2017-09-01] MEDS: Ferrous Sulfate 325 MG TAB PO SCH (09:13)
[2017-09-01] MEDS: Digoxin 0.125 MG TAB PO SCH (09:14)
[2017-09-01] MEDS: Amlodipine 5 MG TAB PO SCH (09:14)
[2017-09-01] MEDS: Loratadine 10 MG TAB PO SCH (09:14)
[2017-09-01] MEDS: Hydrocortisone 1% Cream 30 GM TUBE TOP SCH ×3 (09:15→20:44)
[2017-09-01] MEDS: Carvedilol 6.25 MG TAB PO SCH ×2 (09:15→16:05)
[2017-09-01] MEDS: Calcium Carbonate + Vit D 1 TAB PO SCH ×2 (09:15→16:05)
[2017-09-01] MEDS: Hydrocortisone Acetate 25 MG Suppository PR SCH ×4 (09:18→20:44)
[2017-09-01] MEDS: Acetaminophen/Codeine 30-300mg Tablet PO PRN (20:44)
[2017-09-02] MEDS: Albuterol Sulfate 2.5 mg/3 ml Neb NEB PRN ×4 (04:18→23:13)
[2017-09-02 07:29] LABS: #Basophils 0.1 thou/uL (0.0-0.2); #Eosinphils 0.6 thou/uL (0.0-0.7); #Lymphocytes 1.8 thou/uL (1.20-3.40); #Monocytes 1.6 thou/uL (0.11-0.59); #Neutrophils 10.1 thou/uL (1.40-6.50); %Basophils 0.9 % (0.0-1.0); %Eosinophils 4.2 % (0.0-10.0); %Lymphocytes 12.7 % (21.0-51.0); %Neutrophils 71.2 % (42.0-75.0); Hemoglobin 11.5 g/dL (12.0-16.0); Mean Corpuscular HGB CONC 32.4 g/dL (32.0-36.0); Mean Corpuscular Hemoglobin 30.6 pg (27.0-31.0); Mean Corpuscular Volume 94.3 fl (81.0-99.0); Mean Platelet Volume 5.5 fL (7.4-10.4); Platelet Count 416 thou/uL (130-400); RBC Distribution Width 18.3 % (11.5-14.5); Red Blood Cell (RBC) Count 3.77 mill/uL (4.20-5.40); White Blood Cell (WBC) Count 14.2 thou/uL (4.8-10.8)
[2017-09-02 07:51] LABS: Anion Gap 16 mmol/L (10-20); BUN (Urea Nitrogen) 17 mg/dL (9.8-20.1); Calc. Creatinine Clearance 61 mL/min (70-130); Calcium 10.2 mg/dL (7.8-10.44); Carbon Dioxide 24 mmol/L (23-31); Chloride 101 mmol/L (98-107); Estimated GFR-MDRD Greater than 90; Glucose 100 mg/dL (80-115); Potassium 4.5 mmol/L (3.5-5.1); Sodium 136 mmol/L (136-145)
[2017-09-02] MEDS: Ferrous Sulfate 325 MG TAB PO SCH (08:24)
[2017-09-02] MEDS: Amlodipine 5 MG TAB PO SCH (08:24)
[2017-09-02] MEDS: Cyanocobalamin (Vitamin B-12) 1,000 MCG TAB PO SCH (08:25)
[2017-09-02] MEDS: Carvedilol 6.25 MG TAB PO SCH ×2 (08:25→17:27)
[2017-09-02] MEDS: Famotidine 20 MG TAB PO SCH ×2 (08:25→19:07)
[2017-09-02] MEDS: Calcium Carbonate + Vit D 1 TAB PO SCH ×2 (08:25→17:27)
[2017-09-02] MEDS: Folic Acid 1 MG TAB PO SCH (08:25)
[2017-09-02] MEDS: ALPRAZolam 0.5 MG TAB PO SCH ×4 (08:25→19:07)
[2017-09-02] MEDS: Loratadine 10 MG TAB PO SCH (08:25)
[2017-09-02] MEDS: Digoxin 0.125 MG TAB PO SCH (08:26)
[2017-09-02] MEDS: Hydrocortisone 1% Cream 30 GM TUBE TOP SCH ×3 (08:26→19:07)
[2017-09-02] MEDS: Hydrocortisone Acetate 25 MG Suppository PR SCH ×3 (08:27→19:07)
[2017-09-02] MEDS: Acetaminophen/Codeine 30-300mg Tablet PO PRN ×2 (09:48→19:08)
--- NOTE | 2017-09-02 13:17 | PRG ---
DATE OF SERVICE: 09/02/2017 SUBJECTIVE: Ms. Tamez still has some cough, but she thinks it is a little bit better. She denies any complaints. She had no expectoration. No fever or chills. OBJECTIVE: VITAL SIGNS: She is afebrile, heart rate is 81, respirations 20, oxygen saturation 95%, blood pressu re is 129/78. CARDIOVASCULAR SYSTEM: S1, S2 plus. RESPIRATORY SYSTEM: Normal vesicular breath sounds. ABDOMEN: Soft, nontender, bowel sounds heard in all quadrants. EXTREMITIES: Without cyanosis or clubbing. CENTRAL NERVOUS SYSTEM: Improving deconditioning. LABORATORY DATA: Sodium 136, potassium 4.5, BUN and creatinine 17 and 0.64. White count is still el evated at 14.2, hemoglobin and hematocrit is 11.5 and 35.5. Urine culture grew mixed leah and blood cultures are negative. IMPRESSION: 1. Cough, likely allergic versus post-infectious bronchospasm, continue breathing treatments. 2. Deconditioning, slow improvement. 3. History of traumatic brain injury. 4. Fibromyalgia. 5. Hypertension, well controlled. PLAN: 1. Continue current medications. 2. Nutritional support. 3. DVT and stress ulcer prophylaxis. 4. Decubitus precautions. 5. Routine laboratory values. 6. Continue to monitor leukocytosis. Hold off on empiric antibiotics as there is no evidence for an y localizing infection.
[2017-09-02] MEDS: diphenhydrAMINE 25 MG CAP PO PRN (19:08)
[2017-09-03] MEDS: Albuterol Sulfate 2.5 mg/3 ml Neb NEB PRN ×2 (06:08→20:16)
[2017-09-03] MEDS: Calcium Carbonate + Vit D 1 TAB PO SCH ×2 (08:53→17:29)
[2017-09-03] MEDS: Amlodipine 5 MG TAB PO SCH (08:53)
[2017-09-03] MEDS: Loratadine 10 MG TAB PO SCH (08:54)
[2017-09-03] MEDS: ALPRAZolam 0.5 MG TAB PO SCH ×4 (08:55→20:16)
[2017-09-03] MEDS: Carvedilol 6.25 MG TAB PO SCH ×2 (08:55→17:29)
[2017-09-03] MEDS: Digoxin 0.125 MG TAB PO SCH (08:55)
[2017-09-03] MEDS: Famotidine 20 MG TAB PO SCH ×2 (08:55→20:16)
[2017-09-03] MEDS: Folic Acid 1 MG TAB PO SCH (08:55)
[2017-09-03] MEDS: Cyanocobalamin (Vitamin B-12) 1,000 MCG TAB PO SCH (08:55)
[2017-09-03] MEDS: Methocarbamol 500 MG TAB PO PRN ×2 (08:56→15:34)
[2017-09-03] MEDS: Ferrous Sulfate 325 MG TAB PO SCH (08:56)
[2017-09-03] MEDS: Acetaminophen/Codeine 30-300mg Tablet PO PRN ×2 (08:56→15:34)
[2017-09-03] MEDS: Hydrocortisone 1% Cream 30 GM TUBE TOP SCH ×3 (08:57→20:16)
[2017-09-03] MEDS: Hydrocortisone Acetate 25 MG Suppository PR SCH ×4 (08:58→20:16)
[2017-09-04] MEDS: Albuterol Sulfate 2.5 mg/3 ml Neb NEB PRN (06:11)
[2017-09-04] MEDS: Digoxin 0.125 MG TAB PO SCH (08:48)
[2017-09-04] MEDS: Carvedilol 6.25 MG TAB PO SCH ×2 (08:48→17:21)
[2017-09-04] MEDS: ALPRAZolam 0.5 MG TAB PO SCH ×4 (08:48→19:48)
[2017-09-04] MEDS: Famotidine 20 MG TAB PO SCH ×2 (08:48→19:48)
[2017-09-04] MEDS: Folic Acid 1 MG TAB PO SCH (08:48)
[2017-09-04] MEDS: Ferrous Sulfate 325 MG TAB PO SCH (08:48)
[2017-09-04] MEDS: Loratadine 10 MG TAB PO SCH (08:48)
[2017-09-04] MEDS: Calcium Carbonate + Vit D 1 TAB PO SCH ×2 (08:48→17:21)
[2017-09-04] MEDS: Amlodipine 5 MG TAB PO SCH (08:49)
[2017-09-04] MEDS: Cyanocobalamin (Vitamin B-12) 1,000 MCG TAB PO SCH (08:49)
[2017-09-04] MEDS: Methocarbamol 500 MG TAB PO PRN (08:50)
--- NOTE | 2017-09-04 12:30 | PRG ---
DATE OF SERVICE: 09/04/2017 SUBJECTIVE: Ms. Tamez is doing well. Denies any complaints, resting comfortably, tolerating her t herapy. OBJECTIVE: VITAL SIGNS: She is afebrile, heart rate is 94, respirations are 20, oxygen saturation 97%, blood pr essure 147/73. CARDIOVASCULAR: S1, S2 plus. RESPIRATORY: Normal vesicular breath sounds. ABDOMEN: Soft, nontender, bowel sounds heard in all quadrants. EXTREMITIES: Without cyanosis or clubbing. Peripheral pulses are palpable. CENTRAL NERVOUS SYSTEM: Improving deconditioning. IMPRESSION: 1. Still with persistent cough, not responding to breathing treatments. We will try Singulair inste ad of the Claritin 2. Hypertension, improving, controlled. 3. Deconditioning, slow improvement. 4. History of traumatic brain injury. 5. Fibromyalgia. 6. Hemorrhoids, improving. PLAN: 1. Continue physical therapy. 2. Deep venous thrombosis prophylaxis. 3. Nutritional support. 4. Discontinue Claritin and breathing treatments, and change to Singulair. 5. Routine laboratory values. 6. Discussed with patient in detail and all questions answered.
[2017-09-04] MEDS: Hydrocortisone 1% Cream 30 GM TUBE TOP SCH ×3 (15:19→19:49)
[2017-09-04] MEDS: Hydrocortisone Acetate 25 MG Suppository PR SCH ×4 (17:19→19:49)
[2017-09-04] MEDS: Montelukast Sodium 10 mg Tablet PO SCH (19:49)
[2017-09-04] MEDS: Acetaminophen/Codeine 30-300mg Tablet PO PRN (19:49)
[2017-09-05] MEDS: Carvedilol 6.25 MG TAB PO SCH ×2 (09:16→17:15)
[2017-09-05] MEDS: Ferrous Sulfate 325 MG TAB PO SCH (09:16)
[2017-09-05] MEDS: Calcium Carbonate + Vit D 1 TAB PO SCH ×2 (09:16→17:15)
[2017-09-05] MEDS: Amlodipine 5 MG TAB PO SCH (09:16)
[2017-09-05] MEDS: Cyanocobalamin (Vitamin B-12) 1,000 MCG TAB PO SCH (09:17)
[2017-09-05] MEDS: ALPRAZolam 0.5 MG TAB PO SCH ×5 (09:17→22:06)
[2017-09-05] MEDS: Methocarbamol 500 MG TAB PO PRN ×2 (09:17→15:38)
[2017-09-05] MEDS: Hydrocortisone 1% Cream 30 GM TUBE TOP SCH ×3 (09:17→22:06)
[2017-09-05] MEDS: Folic Acid 1 MG TAB PO SCH (09:17)
[2017-09-05] MEDS: Famotidine 20 MG TAB PO SCH ×2 (09:17→22:06)
[2017-09-05] MEDS: Digoxin 0.125 MG TAB PO SCH (09:17)
[2017-09-05] MEDS: Hydrocortisone Acetate 25 MG Suppository PR SCH ×4 (09:18→22:07)
--- NOTE | 2017-09-05 13:02 | PRG ---
DATE OF SERVICE: 09/05/2017 SUBJECTIVE: Ms. Tamez is doing well. Denies any complaints, tolerating her medications. She stat es she is still coughing dry. No shortness of breath. No fever or chills. OBJECTIVE: VITAL SIGNS: She is afebrile, heart rate is at 90, respirations 20, oxygen saturation 94%, blood pre ssure 133/66. CARDIOVASCULAR: S1, S2 plus. RESPIRATORY: Normal vesicular breath sounds. ABDOMEN: Soft, nontender, bowel sounds heard in all quadrants. EXTREMITIES: Without cyanosis or clubbing. CENTRAL NERVOUS SYSTEM: Improving deconditioning. IMPRESSION: 1. Persistent leukocytosis without any evidence for infection. 2. History of traumatic brain injury. 3. Chronic obstructive pulmonary disease. 4. Paroxysmal atrial fibrillation. 5. Hypertension. 6. Allergic rhinitis. PLAN: 1. Continue current medications. 2. Nutritional support. 3. DVT and stress ulcer prophylaxis. 4. Decubitus precautions. 5. Routine laboratory values. 6. Continue Singulair. 7. I discussed with the patient in detail and all questions answered.
[2017-09-05] MEDS: Montelukast Sodium 10 mg Tablet PO SCH (22:07)
[2017-09-06 06:54] LABS: #Basophils 0.2 thou/uL (0.0-0.2); #Eosinphils 0.7 thou/uL (0.0-0.7); #Lymphocytes 1.5 thou/uL (1.20-3.40); #Monocytes 1.2 thou/uL (0.11-0.59); #Neutrophils 8.5 thou/uL (1.40-6.50); %Basophils 1.3 % (0.0-1.0); %Eosinophils 5.5 % (0.0-10.0); %Lymphocytes 12.6 % (21.0-51.0); %Neutrophils 70.6 % (42.0-75.0); Hemoglobin 11.3 g/dL (12.0-16.0); Mean Corpuscular HGB CONC 32.5 g/dL (32.0-36.0); Mean Corpuscular Hemoglobin 28.6 pg (27.0-31.0); Mean Corpuscular Volume 88.1 fl (81.0-99.0); Mean Platelet Volume 6.3 fL (7.4-10.4); Platelet Count 422 thou/uL (130-400); Red Blood Cell (RBC) Count 3.97 mill/uL (4.20-5.40)
[2017-09-06 07:00] LABS: Anion Gap 16 mmol/L (10-20); BUN (Urea Nitrogen) 12 mg/dL (9.8-20.1); Calc. Creatinine Clearance 63 mL/min (70-130); Carbon Dioxide 21 mmol/L (23-31); Chloride 104 mmol/L (98-107); Estimated GFR-MDRD Greater than 90; Glucose 104 mg/dL (80-115); Potassium 3.8 mmol/L (3.5-5.1); Sodium 137 mmol/L (136-145)
[2017-09-06] MEDS: Calcium Carbonate + Vit D 1 TAB PO SCH ×2 (08:39→17:08)
[2017-09-06] MEDS: Amlodipine 5 MG TAB PO SCH (08:39)
[2017-09-06] MEDS: Digoxin 0.125 MG TAB PO SCH (08:39)
[2017-09-06] MEDS: Ferrous Sulfate 325 MG TAB PO SCH (08:40)
[2017-09-06] MEDS: Famotidine 20 MG TAB PO SCH (08:40)
[2017-09-06] MEDS: Carvedilol 6.25 MG TAB PO SCH ×2 (08:40→17:08)
[2017-09-06] MEDS: ALPRAZolam 0.5 MG TAB PO SCH ×3 (08:40→17:08)
[2017-09-06] MEDS: Cyanocobalamin (Vitamin B-12) 1,000 MCG TAB PO SCH (08:40)
[2017-09-06] MEDS: Hydrocortisone Acetate 25 MG Suppository PR SCH ×3 (08:41→17:08)
[2017-09-06] MEDS: Hydrocortisone 1% Cream 30 GM TUBE TOP SCH ×2 (08:41→15:25)
[2017-09-06] MEDS: Folic Acid 1 MG TAB PO SCH (08:42)
[2017-09-06] MEDS: Methocarbamol 500 MG TAB PO PRN (08:45)
[2017-09-06] MEDS: Acetaminophen/Codeine 30-300mg Tablet PO PRN ×2 (08:45→15:22)
--- NOTE | 2017-09-06 11:00 | PRG ---
DATE OF SERVICE: 09/06/2017 Ms. Tamez is still having some cough. Denies any fever or chills. Denies any chest pain or shortn ess of breath. OBJECTIVE: VITAL SIGNS: She is afebrile, heart rate is 90, respirations 18, oxygen saturation 95% on room air, blood pressure is 148/79. CARDIOVASCULAR: S1, S2 plus. RESPIRATORY: Normal vesicular breath sounds. ABDOMEN: Soft, nontender, bowel sounds heard in all quadrants. EXTREMITIES: Without cyanosis or clubbing. LABORATORY VALUES: White count is down to 12,000, H&H is 11.3 and 35. Sodium 137, potassium 3.8, BU N and creatinine 12 and 1.62. IMPRESSION: 1. Cough, likely allergic. 2. Improving deconditioning. 3. History of traumatic brain injury. 4. Fibromyalgia. 5. Chronic obstructive pulmonary disease. 6. Paroxysmal atrial fibrillation. 7. Hypertension. PLAN: 1. Trial of Tessalon Perles in addition to the Singulair. 2. Continue physical therapy. Discuss with therapy and she has been cleared to ambulate in the [address] with nursing. 3. DVT and stress ulcer prophylaxis. 4. Decubitus precautions. 5. Routine laboratory values.
[2017-09-07] MEDS: Hydrocortisone Acetate 25 MG Suppository PR SCH ×5 (00:39→19:08)
[2017-09-07] MEDS: Famotidine 20 MG TAB PO SCH ×3 (00:39→20:19)
[2017-09-07] MEDS: Hydrocortisone 1% Cream 30 GM TUBE TOP SCH ×5 (00:39→20:23)
[2017-09-07] MEDS: Montelukast Sodium 10 mg Tablet PO SCH ×2 (00:39→20:19)
[2017-09-07] MEDS: ALPRAZolam 0.5 MG TAB PO SCH ×5 (00:39→20:19)
[2017-09-07] MEDS: Methocarbamol 500 MG TAB PO PRN ×3 (03:40→17:20)
[2017-09-07] MEDS: Acetaminophen/Codeine 30-300mg Tablet PO PRN ×3 (03:41→17:21)
[2017-09-07] MEDS: Calcium Carbonate + Vit D 1 TAB PO SCH ×2 (08:38→17:20)
[2017-09-07] MEDS: Amlodipine 5 MG TAB PO SCH (08:39)
[2017-09-07] MEDS: Ferrous Sulfate 325 MG TAB PO SCH (08:40)
[2017-09-07] MEDS: Digoxin 0.125 MG TAB PO SCH (08:40)
[2017-09-07] MEDS: Carvedilol 6.25 MG TAB PO SCH ×2 (08:40→17:20)
[2017-09-07] MEDS: Cyanocobalamin (Vitamin B-12) 1,000 MCG TAB PO SCH (08:40)
[2017-09-07] MEDS: Benzonatate 100 MG CAP PO PRN ×2 (08:41→17:20)
[2017-09-07] MEDS: Folic Acid 1 MG TAB PO SCH (08:41)
--- NOTE | 2017-09-07 16:21 | PRG ---
DATE OF SERVICE: 09/07/2017 SUBJECTIVE: Ms. Tamez is doing well. Denies any complaints, resting comfortably, seems like Lynn Booth is helping with her cough. OBJECTIVE: VITAL SIGNS: She is afebrile, heart rate 93, respirations 16, and blood pressure 137/72. CARDIOVASCULAR SYSTEM: S1, S2 plus. RESPIRATORY SYSTEM: Normal vesicular breath sounds. ABDOMEN: Soft, nontender, bowel sounds heard in all quadrants. EXTREMITIES: Without cyanosis or clubbing. CENTRAL NERVOUS SYSTEM: Improving deconditioning. She apparently ambulated around the nurses' stati on with assistance from nursing. IMPRESSION: 1. Improving deconditioning. 2. History of traumatic brain injury. 3. Fibromyalgia. 4. Chronic obstructive pulmonary disease. 5. Improving leukocytosis. 6. Paroxysmal atrial fibrillation. 7. Hypertension. PLAN: 1. Continue current medications. 2. Nutritional support. 3. DVT and stress ulcer prophylaxis. 4. Decubitus precautions. 5. Routine laboratory values. 6. Continue Tracey Booth. 7. She has a history of COPD, but I do not see her on any lab steroid combo, will review old records .
[2017-09-08] MEDS: Benzonatate 100 MG CAP PO PRN ×2 (04:58→13:03)
[2017-09-08] MEDS: Acetaminophen/Codeine 30-300mg Tablet PO PRN ×3 (04:58→17:41)
[2017-09-08] MEDS: Methocarbamol 500 MG TAB PO PRN ×3 (04:58→17:41)
[2017-09-08] MEDS: Famotidine 20 MG TAB PO SCH ×2 (08:37→20:00)
[2017-09-08] MEDS: ALPRAZolam 0.5 MG TAB PO SCH ×4 (08:37→20:00)
[2017-09-08] MEDS: Digoxin 0.125 MG TAB PO SCH (08:37)
[2017-09-08] MEDS: Calcium Carbonate + Vit D 1 TAB PO SCH ×2 (08:38→17:40)
[2017-09-08] MEDS: Ferrous Sulfate 325 MG TAB PO SCH (08:38)
[2017-09-08] MEDS: Amlodipine 5 MG TAB PO SCH (08:38)
[2017-09-08] MEDS: Folic Acid 1 MG TAB PO SCH (08:39)
[2017-09-08] MEDS: Cyanocobalamin (Vitamin B-12) 1,000 MCG TAB PO SCH (08:39)
[2017-09-08] MEDS: Carvedilol 6.25 MG TAB PO SCH ×2 (08:39→17:40)
[2017-09-08] MEDS: Hydrocortisone 1% Cream 30 GM TUBE TOP SCH ×4 (08:40→18:58)
[2017-09-08] MEDS: Hydrocortisone Acetate 25 MG Suppository PR SCH ×4 (08:40→18:58)
--- NOTE | 2017-09-08 14:28 | PRG ---
DATE OF SERVICE: 09/08/2017 SUBJECTIVE: Ms. Tamez is doing well. Denies any complaints, resting comfortably, getting stronger . OBJECTIVE: VITAL SIGNS: She is afebrile, heart rate is 86, respirations 16, oxygen saturation 95%, blood pressu re 117/59. CARDIOVASCULAR SYSTEM: S1, S2 plus. RESPIRATORY SYSTEM: Normal vesicular breath sounds. ABDOMEN: Soft, nontender, bowel sounds heard in all quadrants. EXTREMITIES: Without cyanosis or clubbing. CENTRAL NERVOUS SYSTEM: Improving deconditioning. IMPRESSION: 1. Improving deconditioning. 2. History of traumatic brain injury. 3. Fibromyalgia. 4. Irritable bowel syndrome. 5. History of atrial fibrillation. 6. Dyslipidemia. 7. Chronic diastolic congestive heart failure. PLAN: 1. Continue current medications. 2. Nutritional support. 3. DVT and stress ulcer prophylaxis. 4. Decubitus precautions. 5. Routine laboratory values. 6. I have stated in the past that she has COPD, but reviewed Dr. La's notes and there is no menti on of COPD, I could not find any pulmonary function tests, so it must have been more of bronchospasm due to her respiratory illness.
[2017-09-08] MEDS: Montelukast Sodium 10 mg Tablet PO SCH (20:00)
[2017-09-09] MEDS: Acetaminophen/Codeine 30-300mg Tablet PO PRN ×2 (04:07→12:38)
[2017-09-09] MEDS: Methocarbamol 500 MG TAB PO PRN ×2 (04:08→12:38)
[2017-09-09] MEDS: Benzonatate 100 MG CAP PO PRN (04:08)
[2017-09-09] MEDS: Carvedilol 6.25 MG TAB PO SCH ×2 (08:18→17:30)
[2017-09-09] MEDS: Calcium Carbonate + Vit D 1 TAB PO SCH ×2 (08:18→17:30)
[2017-09-09] MEDS: Ferrous Sulfate 325 MG TAB PO SCH (08:19)
[2017-09-09] MEDS: Amlodipine 5 MG TAB PO SCH (08:19)
[2017-09-09] MEDS: ALPRAZolam 0.5 MG TAB PO SCH ×4 (08:19→20:14)
[2017-09-09] MEDS: Famotidine 20 MG TAB PO SCH ×2 (08:20→20:14)
[2017-09-09] MEDS: Folic Acid 1 MG TAB PO SCH (08:20)
[2017-09-09] MEDS: Digoxin 0.125 MG TAB PO SCH (08:20)
[2017-09-09] MEDS: Cyanocobalamin (Vitamin B-12) 1,000 MCG TAB PO SCH (08:20)
[2017-09-09] MEDS: Hydrocortisone Acetate 25 MG Suppository PR SCH ×4 (08:21→20:10)
[2017-09-09] MEDS: Hydrocortisone 1% Cream 30 GM TUBE TOP SCH ×3 (08:21→20:10)
--- NOTE | 2017-09-09 13:43 | DIS ---
DATE OF ADMISSION: 08/20/2017 DATE OF DISCHARGE: 09/09/2017 PRINCIPAL DIAGNOSES: 1. Significant deconditioning with improvement with therapy. 2. History of traumatic brain injury. 3. Irritable bowel syndrome. 4. Fibromyalgia. 5. History of atrial fibrillation. 6. Dyslipidemia. 7. Chronic diastolic congestive heart failure. 8. Chronic kidney disease stage 2. 9. Chronic cough, likely secondary to allergic rhinitis. 10. History of bilateral tubal ligation. 11. History of ankle surgery. 12. History of percutaneous endoscopic gastrostomy tube placement with subsequent removal. 13. History of radial keratotomy. COMPLICATIONS: None. ADVERSE REACTIONS: None. PROCEDURES: None. CONSULTATIONS: Physical therapy and occupational therapy. HOSPITAL COURSE: The patient was admitted on 08/20/2017 from [facility] after being admitted there for sepsis and significant deconditioning. She has been doing well with therapy and slowly improving and apparently she is able to ambulate around the hallways with assistance. Therapy feels that she is safe to go home. Unfortunately, she states that at her apartment correction, she currently does not have any running water or electricity. Case management and residential director is trying to sort that out. She also refuses to go to a [facility]. She states that she will be able to take care of herself and she has friends. I advised the residential director that either way to inform Adult Protective Services so that they can keep an eye on her because I am not sure if she will be able to handle herself. She is not my regular patient, so I will not have any followup after this discharge. I would like to have APS to monitor her situation. The patient states that she does not need any prescriptions except the Singulair which was started here and I am going to send it into the pharmacy on the day of discharge, and this may not happen until tomorrow or until they find a safe discharge and someone to be there to monitor her situation until APS can go and evaluate her. PHYSICAL EXAMINATION: VITAL SIGNS: Today, she is afebrile, heart rate 84, respirations 18, oxygen saturation 93%, blood pressure 133/71. CARDIOVASCULAR SYSTEM: S1, S2 plus. RESPIRATORY SYSTEM: Normal vesicular breath sounds. ABDOMEN: Soft, nontender, bowel sounds heard in all quadrants. EXTREMITIES: Without cyanosis or clubbing. CENTRAL NERVOUS SYSTEM: Improving deconditioning. DISCHARGE MEDICATIONS: 1. Xanax 0.5 mg q.i.d. 2. Norvasc 2.5 mg daily. 3. Tessalon Perles 100 mg t.i.d. 4. Carvedilol 6.25 mg b.i.d. 5. Lanoxin 0.125 mg daily. 6. Pepcid 20 mg b.i.d. 7. Iron sulfate 325 daily. 7. Singulair 10 mg at night. DISCHARGE INSTRUCTIONS: She is to follow up with her primary care physician within 3-5 days, heart healthy diet. She is to call us with any questions or concerns. She is aware that I will not be following her on an outpatient basis. No family or friends at bedside. ADDENDUM: I discussed with Ms. Tamez as to which pharmacy she uses so I can send in the Singulair and the Tessalon Perles. She states that she uses mail order and she does not know what mail order company it is. She also states that she gets her prescriptions through a Dr. Guerrero. I had asked her if she knows his address or phone number or where he is located or who he is with and she is not aware. She states that he moved to [email or web address] and she is not even sure of the location, so I advised her that the best thing to do will be is for me to give her a list of her discharge medications and then she can make sure she follows up with Dr. Guerrero within the next couple of days and then he can send in her prescriptions for mail order because he may have the name of the pharmacy that she uses. She is in agreement. I also advised her to talk to medical records and get a medical record release signed so the discharge summary and her hospital stay here information can be sent to her PCP. Orders for Home health including PT and OT were done. JEOVANY
[2017-09-09] MEDS: Acetaminophen 500 MG TAB PO PRN (15:50)
[2017-09-09] MEDS: Montelukast Sodium 10 mg Tablet PO SCH (20:14)
[2017-09-10 07:48] VITALS: BP 140/86; TEMP 97.1
[2017-09-10] MEDS: Carvedilol 6.25 MG TAB PO SCH (08:05)
[2017-09-10] MEDS: Calcium Carbonate + Vit D 1 TAB PO SCH (08:05)
[2017-09-10] MEDS: Ferrous Sulfate 325 MG TAB PO SCH (08:06)
[2017-09-10] MEDS: Amlodipine 5 MG TAB PO SCH (08:06)
[2017-09-10] MEDS: ALPRAZolam 0.5 MG TAB PO SCH (08:06)
[2017-09-10] MEDS: Folic Acid 1 MG TAB PO SCH (08:07)
[2017-09-10] MEDS: Cyanocobalamin (Vitamin B-12) 1,000 MCG TAB PO SCH (08:07)
[2017-09-10] MEDS: Digoxin 0.125 MG TAB PO SCH (08:07)
[2017-09-10] MEDS: Famotidine 20 MG TAB PO SCH (08:07)
[2017-09-10] MEDS: Hydrocortisone 1% Cream 30 GM TUBE TOP SCH (08:08)
[2017-09-10] MEDS: Hydrocortisone Acetate 25 MG Suppository PR SCH (08:11)
== END 2017-09-10 09:30 | disposition home or self-care (01) | DRG 191 ==
LOC: NAV ACUTE 15:41
PROVIDERS: ADMIT Internal Medicine; ATTEND Internal Medicine
DX: J44.1 Chronic obstructive pulmonary disease with (acute) exacerbation (principal); J96.12 Chronic respiratory failure with hypercapnia; I13.0 Hypertensive heart and chronic kidney disease with heart failure and stage 1 through stage 4 chronic kidney disease, or unspecified chronic kidney disease; I50.32 Chronic diastolic (congestive) heart failure; I48.0 Paroxysmal atrial fibrillation; N18.2 Chronic kidney disease, stage 2 (mild); E78.5 Hyperlipidemia, unspecified; D72.829 Elevated white blood cell count, unspecified; M79.7 Fibromyalgia; M06.9 Rheumatoid arthritis, unspecified; K08.89 Other specified disorders of teeth and supporting structures; K58.9 Irritable bowel syndrome, unspecified; J30.9 Allergic rhinitis, unspecified; R53.81 Other malaise; Z87.820 Personal history of traumatic brain injury; Z88.0 Allergy status to penicillin
CPT/HCPCS: 36415; 71010; 80048; 85025; 87040; 87086; 94640; G8978-GP-CL; G8979-GP-CJ; J7611